=== PATIENT | male | born 1950 | race Caucasian/White ===

== ENCOUNTER 2016-10-31 13:51 | Emergency (ER) | payer OTHER ==
[~2016-10-31] VITALS: Ht 177.8 cm; Wt 77.0 kg
[~2016-10-31 13:51] MED LIST: ALPR.25; AMLO5TAB22 PO; CARD2TAB PO; CARV12.52 PO; CEPH500C3 PO; CYMB30CA PO; FINA5TAB77; FLEX10TA OR; LANO0.2510 OR; LISI-366 PO; OMEP20TA PO; ST JTAB PO; TRAZ100 PO; TYLE3 PO; ZOCO40TA PO
[2016-10-31 14:17] VITALS: BP 169/97; PULSE 85; RESP 16; TEMP 98.4; O2SAT 97
[2016-10-31] MEDS ORDERED: OMEP20TA PO (14:25)
[2016-10-31] MEDS ORDERED: CARV25TA PO (14:25)
[2016-10-31] MEDS ORDERED: LISI40TA PO (14:25)
[2016-10-31] MEDS ORDERED: FINA5TAB2 PO (14:25)
[2016-10-31] MEDS ORDERED: AMLO5TAB2 PO (14:25)
[2016-10-31] MEDS ORDERED: DIGO0.25 PO (14:25)
[2016-10-31] MEDS ORDERED: CYCL1TAB29 PO (14:25)
[2016-10-31] MEDS ORDERED: SIMV20TA PO (14:25)
[2016-10-31] MEDS ORDERED: CARD2TAB PO (14:25)
--- NOTE | 2016-10-31 14:30 | PD ---
HPI Chief Complaint: Complaint Time Seen by Provider: 14:01 Travel History International Travel<30 days: No Contact w/Intl Traveler<30days: No Traveled to known affect area: No History of Present Illness HPI Patient is a 66-year-old male who presents to emergency room with complaints of acute urinary retention. Reports that he had a surgery done in the beginning of September, reports that since then, he has had acute urinary retention and has a Gomez catheter. Reports that he does follow with Dr. Clemente with urology and has had his fc changed at least 3 times. Reports that he noticed decreased urine output this AM, reports that at this time, he feels increased pressure to his suprapubic area and feels as if his gomez is not draining anymore. PFSH Past Medical History Asthma: Yes Blood Disorders: No Anxiety: Yes Depression: Yes Heart Rhythm Problems: Yes (SICK SINUS SYNDROME) Cancer: Yes (MELANOMA LIP) Cardiac Catheterization: Yes Cardiomyopathy: Yes Cardiovascular Problems: Yes High Cholesterol: Yes Chemotherapy: No Chest Pain: Yes Diabetes: Yes Patient Takes Glucophage: No Diminished Hearing: No Endocrine: No Gastrointestinal Disorders: Yes GERD: Yes Genitourinary: Yes (ENLARGE PROSTATE) Hepatitis: No Hiatal Hernia: No Hypertension: Yes Immune Disorder: No Musculoskeletal: No Neurologic: No Psychiatric: No Reproductive: No Respiratory: Yes Myocardial Infarction: No Radiation Therapy: No Ulcer: No Tetanus Vaccination: > 5 Years Influenza Vaccination: Yes Past Surgical History Abdominal Surgery: Yes (HERNIA RIGHT WITH MESH 1999) AICD: Yes ([employer] MICHAEL DEFIBRILLATOR) Appendectomy: No Arteriovenous Shunt: No Cardiac Surgery: Yes (2 PACERS. LAST PLACED JAN 2005) Cholecystectomy: Yes Ear Surgery: No Endocrine Surgery: No Eye Surgery: No Gynecologic Surgery: No Insulin Pump: No Joint Replacement: No Oral Surgery: No Pacemaker: Yes Thoracic Surgery: Yes Other Surgery: Yes (PACER) Social History Alcohol Use: No (OCCAS) Tobacco Use: Yes (1 PK/DAY) Substance Use: Yes Allergies-Medications (Allergen,Severity, Reaction): Coded Allergies: No Known Allergies (Verified , 10/31/16) Reported Meds & Prescriptions Reported Meds & Active Scripts Active Reported Simvastatin 20 Mg Tab 20 Mg PO DAILY Omeprazole 20 Mg Tab 20 Mg PO DAILY Lisinopril 40 Mg Tab 40 Mg PO DAILY Finasteride 5 Mg Tab 5 Mg PO DAILY Do not crush. Cardura (Doxazosin Mesylate) 2 Mg Tab 2 Mg PO DAILY Digoxin 0.25 Mg Tab 0.25 Mg PO DAILY Flexeril (Cyclobenzaprine HCl) 10 Mg Tab 10 Mg PO QID Carvedilol 25 Mg Tab 25 Mg PO BID Amlodipine (Amlodipine Besylate) 5 Mg Tab 5 Mg PO DAILY Review of Systems General / Constitutional: No: Fever Eyes: No: Visual changes HENT: No: Headaches Cardiovascular: No: Chest Pain or Discomfort Respiratory: No: Shortness of Breath Gastrointestinal: No: Abdominal Pain Genitourinary: Positive: Decreased Urinary Output, Other (acute urinary retention), No: Dysuria Musculoskeletal: No: Pain Skin: No Rash Neurologic: No: Weakness Psychiatric: No: Depression Endocrine: No: Polydipsia Hematologic/Lymphatic: No: Easy Bruising Physical Exam Narrative GENERAL: mild distress SKIN: Focused skin assessment warm/dry. HEAD: Atraumatic. Normocephalic. EYES: Pupils equal and round. No scleral icterus. No injection or drainage. ENT: No nasal bleeding or discharge. Mucous membranes pink and moist. NECK: Trachea midline. No JVD. CARDIOVASCULAR: Regular rate and rhythm. No murmur appreciated. RESPIRATORY: No accessory muscle use. Clear to auscultation. Breath sounds equal bilaterally. GASTROINTESTINAL: Abdomen soft, non-tender, nondistended. tenderness to suprapubic region, Hepatic and splenic margins not palpable. MUSCULOSKELETAL: No obvious deformities. No clubbing. No cyanosis. No edema. NEUROLOGICAL: Awake and alert. No obvious cranial nerve deficits. Motor grossly within normal limits. Normal speech. PSYCHIATRIC: Appropriate mood and affect; insight and judgment normal. Data Data Last Documented VS Vital Signs Date Time Temp Pulse Resp B/P Pulse Ox O2 Delivery O2 Flow Rate FiO2 10/31/16 14:19 10/31/16 14:17 98.4 85 16 97 Room Air Orders Bladder Scan PRN (10/31/16 14:01) Replace Gomez (10/31/16 14:03) Urinalysis - C+S If Indicated (10/31/16 14:03) Basic Metabolic Panel (Bmp) (10/31/16 14:03) Urine Culture (10/31/16 14:30) Labs Laboratory Tests Test 10/31/16 14:30 Urine Collection Type CATH Urine Color STRAW Urine Turbidity SLIGHT Urine pH 7.5 Urine Specific [place] 1.007 Urine Protein NEG mg/dL Urine Glucose (UA) NEG mg/dL Urine Ketones NEG mg/dL Urine Occult Blood LARGE Urine Nitrite POS Urine Bilirubin NEG Urine Leukocyte Esterase LARGE Urine RBC 10-14 /hpf Urine WBC 100-200 /hpf Urine Bacteria MOD /hpf Microscopic Urinalysis Comment CULTURE INDICATED Sodium Level 143 MEQ/L Potassium Level 3.5 MEQ/L Chloride Level 110 MEQ/L Carbon Dioxide Level 26.1 MEQ/L Anion Gap 7 MEQ/L Blood Urea Nitrogen 19 MG/DL Creatinine 0.95 MG/DL Estimat Glomerular Filtration 79 ML/MIN Rate Random Glucose 108 MG/DL Calcium Level 9.1 MG/DL MDM Medical Decision Making Medical Screen Exam Complete: Yes Emergency Medical Condition: Yes Interpretation(s) Vital Signs Date Time Temp Pulse Resp B/P Pulse Ox O2 Delivery O2 Flow Rate FiO2 10/31/16 14:19 10/31/16 14:17 98.4 85 16 169/97 97 Room Air Differential Diagnosis differential includes uti, acute urinary retention, fc malfunction Narrative Course Patient is a 66-year-old male who presents to emergency room with complaints of Gomez catheter malfunction as well as acute urinary retention. Patient has had minimal output from his Gomez catheter since this AM. Patient feels full to his lower abdomen. Gomez catheter changed - ua ordered. BMP ordered to evaluate for renal function CBC & BMP Diagram 10/31/16 14:30 Microbiology Date/Time Procedure Status Source Growth 10/31/16 14:30 Urine Culture Received Urine Catheterized Urine Pending Vital Signs Date Time Temp Pulse Resp B/P Pulse Ox O2 Delivery O2 Flow Rate FiO2 10/31/16 14:19 10/31/16 14:17 98.4 85 16 169/97 97 Room Air Gomez catheter was changes - now functional and draining urine. patient does have a UTI - im rocephin ordered. plan to discharge with macrobid. patient understands need to follow up with all cultures from today. he will follow up with his urologist and will return to ER as needed Diagnosis Primary Impression: Acute urinary retention Additional Impression: UTI (urinary tract infection) Qualified Code: N30.01 - Acute cystitis with hematuria Patient Instructions: General Instructions Additional Instructions: Please follow up with your urologist as soon as possible Please take all antibiotics as prescribed Please follow up with all cultures from today Return to ER if symptoms worsen or progress Med/Other Pt SpecificInfo: Prescription(s) given Scripts Nitrofurantoin Monohydrate Macrocrystals (Macrobid)100 Mg Inc234 Mg PO BID 10 Days Ref 0 Prov:Maranda Crabtree DO 10/31/16 Disposition: 01 DISCHARGE HOME Condition: Stable Maranda Crabtree DO Oct 31, 2016 14:30
[2016-10-31 14:43] LABS: BLOOD, URINE LARGE (NEG); GLUCOSE,URINE NEG (NEG); KETONE, URINE NEG (NEG); PH, URINE 7.5 (5.0-8.5)
[2016-10-31 14:48] LABS: POTASSIUM 3.5 MEQ/L (3.5-5.1)
[2016-10-31 14:49] LABS: NITRITE,URINE POS (NEG)
[2016-10-31 14:50] LABS: METHOD OF COLLECTION CATH
[2016-10-31 14:51] LABS: BICARBONATE 26.1 MEQ/L (21.0-32.0); URINE COLOR STRAW (YELLW/STRAW)
[2016-10-31 14:52] LABS: BACTERIA, URINE MOD /hpf; COMMENT (UR) CULTURE INDICATED; CULTURE IF INDICATED CULTURE INDICATED; WBC, URINE 100-200 /hpf (0-5)
[2016-10-31] MEDS ORDERED: MACR100C2 PO (15:10)
[2016-10-31] MEDS ORDERED: LIDOCAINE HCL 1% 50 ML VIAL IM ONE (15:15)
[2016-10-31] MEDS ORDERED: LIDOCAINE HCL 1% PF 30 ML VIAL ONE (15:31)
[2016-10-31 15:39] VITALS: BP 161/92; PULSE 76; RESP 16; O2SAT 97
== END 2016-10-31 16:09 | disposition home or self-care (01) ==
LOC: PHED 13:51
DX: R33.9 Retention of urine, unspecified (principal); N30.01 Acute cystitis with hematuria; T83.011A Breakdown (mechanical) of indwelling urethral catheter, initial encounter; B96.4 Proteus (mirabilis) (morganii) as the cause of diseases classified elsewhere; E11.9 Type 2 diabetes mellitus without complications; I10 Essential (primary) hypertension; E78.00 Pure hypercholesterolemia, unspecified; F17.200 Nicotine dependence, unspecified, uncomplicated; Z87.09 Personal history of other diseases of the respiratory system; Z86.59 Personal history of other mental and behavioral disorders; Z86.79 Personal history of other diseases of the circulatory system; Z87.19 Personal history of other diseases of the digestive system; Z87.438 Personal history of other diseases of male genital organs
CPT/HCPCS: 51703; 80048; 81001; 87077; 87086; 87186; 96372; 99284; J0696